=== PATIENT | male | born 1970 | race Two or more races ===

== ENCOUNTER 2020-06-07 15:57 | Emergency (ER) | payer OTHER ==
[~2020-06-07] VITALS: Ht 188 cm; Wt 145.1 kg
[~2020-06-07 15:57] MED LIST: MICARDIS80 MG PO
[2020-06-07] MEDS ORDERED: AVAPRO300 MG (16:19)
== END 2020-06-07 21:01 | disposition home or self-care (01) ==
LOC: ER 15:57
DX: R10.13 Epigastric pain (principal)